=== PATIENT | male | born 1990 | race American Indian/Alaskan Native ===

== ENCOUNTER 2020-07-08 20:40 | Emergency (ER) | payer SELFPAY ==
[2020-07-08 23:56] VITALS: BP 122/85
== END 2020-07-09 00:14 | disposition left against medical advice (07) ==
LOC: ED 20:40
DX: R53.83 Other fatigue (principal); Z53.21 Procedure and treatment not carried out due to patient leaving prior to being seen by health care provider

== ENCOUNTER 2020-07-09 14:20 | Emergency (ER) | payer SELFPAY ==
[2020-07-09] MEDS ORDERED: TETANUS,DIPH,PERTUSS(ACELL) VACCINE 0.5 ML SYRINGE IM ONE (14:38)
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
== END 2020-07-09 16:00 | disposition left against medical advice (07) ==
LOC: ED 14:20
DX: R41.82 Altered mental status, unspecified (principal); Z53.21 Procedure and treatment not carried out due to patient leaving prior to being seen by health care provider
CPT/HCPCS: 70450; 72125; 82962